=== PATIENT | female | born 1990 | race Caucasian/White ===

== ENCOUNTER → 2016-09-09 | Outpatient (CLI) | payer BC ==
[~2016-09-09] MED LIST: ALBUTEROL0.09 MG/A2 IH; ALBUTEROL0.09 MG/A2 INH; AMOXIL500 MG PO; ANAPROX DS550 MG PO; ATIVAN0.5 MG PO; CILOXAN 5 ML5 ML OT; CIPROFLOXACIN500 MG PO; CLARITIN10 MG PO; CORTISPORIN 1%-10 M1 OT; FE-TABS325 MG PO; FLONASE0.05 MG/AC; LEVOFLOXACIN500 MG PO; MEDROL DOSEPAK4 MG PO; NATURE'S BLE1000 MCG; NO DAILY MEDS; PERCOCET 325 MG1 TA7 PO; PERCOCET 325 MG1 TAB PO; PRE-NATAL1 TA1 PO; PRENATAL1 TA1 PO; TRIMOX500 MG PO; VENTOLIN 02.5 MG/3 M INH; VICO10300 PO; ZOFRAN ODT4 MG SL; ZOFRAN4 MG PO; ZYRTEC10 MG
== END | disposition home or self-care (01) ==
LOC: LAB 19:28
DX: Z31.41 Encounter for fertility testing (principal)

== ENCOUNTER → 2016-09-20 | Outpatient (CLI) | payer BC | END | disposition home or self-care (01) | LOC: LAB 08:26 | DX: Z01.83 Encounter for blood typing (principal); O09.01 Supervision of pregnancy with history of infertility, first trimester; Z3A.00 Weeks of gestation of pregnancy not specified ==

== ENCOUNTER → 2017-01-27 | Outpatient (CLI) | payer OTHER | END | disposition home or self-care (01) | LOC: RAD 14:46 | DX: M25.531 Pain in right wrist (principal) ==

== ENCOUNTER 2017-02-03 23:32 | Inpatient (IN) | payer OTHER ==
[~2017-02-03] VITALS: Ht 172.7 cm; Wt 83.7 kg
--- NOTE | ~2017-02-03 | CON ---
[place], [place] REPORT OF CONSULTATION NAME: SERA LOERA UNIT #: [id number] ROOM: 427 DOCTOR: CHRISTIAN MEZA MD BIRTHDATE: [birth year] DOS: 02/04/2017 REASON FOR CONSULTATION: Palpitations and frequent PVCs. 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 She was in her normal state of health until recently when she began to have problems with cough and dyspnea. She was felt to have bronchitis and was prescribed azithromycin Dose Pack along with a Medrol Dosepak. While she was taking the antibiotic and steroid therapy, she started feeling her pulse. ____ was becoming erratic and she became much more aware of her pulse and breathing. She was especially symptomatic when she laid down. This continued to worsen and therefore she came to the Emergency Room where she was found to have sinus tachycardia along with frequent isolated monomorphic PVCs. Her white count was elevated at 18,800. She was not anemic and had hemoglobin of 13.6. Troponin levels were normal and a TSH was normal. Nonetheless, she continued to have palpitations and therefore cardiac consultation was requested. She denies any chest pain, but she has had cough, wheezing and dyspnea. PAST MEDICAL HISTORY: Includes 1. Bronchitis and bronchospasm. 2. Long-term and ongoing cigarette abuse. 3. Asthma. 4. History of nasal septoplasty and tympanostomy tube placement. MEDICATIONS: Prior to admission: Albuterol by inhaler q. 6 hours p.r.n., DuoNeb by nebulizer q. 4 hours, Flonase nasal spray 2 sprays in each nostril b.i.d., cetirizine 10 mg daily and cholecalciferol 50,000 units weekly. ALLERGIES: The patient lists allergies to CORN, PEANUTS, SOYA and WHEAT. REVIEW OF SYSTEMS: The patient denies diplopia or loss of vision. She denies lightheadedness or syncope. She denies focal weakness. She denies orthopnea or PND. She has had cough and dyspnea. She denies fevers, chills, sweats or recent weight change. She denies any focal weakness. She denies nausea or vomiting. She denies hemoptysis or hematemesis. She denies change in bowel or bladder habits. Denies blood in her stool or urine. She denies any peripheral edema. She denies any skin rashes or hot, swollen joints. She denies any heat or cold intolerance. Denies polydipsia or polyuria. The remainder of the review of systems is negative except as noted above. FAMILY HISTORY: Negative for early coronary artery disease. 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 She smokes about 1/2-1 pack a day and does live with smokers in the home. She does not consume excessive amounts of alcohol. PHYSICAL EXAMINATION: [place], [place] REPORT OF CONSULTATION NAME: SERA LOERA UNIT #: [id number] ROOM: [facility] DOCTOR: CHRISTIAN MEZA MD BIRTHDATE: [birth year] GENERAL: The patient is a well-nourished white female who is awake, alert and oriented. She does appear to be anxious. VITAL SIGNS: Pulse is 140 and regular, blood pressure is 142/79. She is afebrile. She weighs 83.7 kg and has a body mass index of 28.1. HEENT: Normocephalic, atraumatic. Extraocular muscles are intact. Sclerae are clear. Pupils are equal, round and react to light. Oral mucosa is moist. Tongue is midline. NECK: Supple. She has no jugular distention. Carotids are full. I heard no bruits. She had no neck or supraclavicular masses and no thyromegaly. LUNGS: Respirations are slightly labored at rest and she does have frequent coughing during the interview. Breath sounds do show marked expiratory prolongation with expiratory wheezes and rhonchi bilaterally. Abnormal lung sounds are heard over all lung morin. She has no presacral edema or chest wall tenderness. CARDIOVASCULAR: Her heart has a regular rhythm without murmurs, rubs or gallops. Heart tones are somewhat obscured by the lung sounds. The PMI is not displaced. There is no precordial heave, lift or thrill. ABDOMEN: Soft, nontender, normoactive without masses, organomegaly or bruits. EXTREMITIES: Showed no clubbing, cyanosis, edema, cords or Homans sign. Peripheral pulses are easily palpated bilaterally. LABORATORY DATA: I reviewed her electrocardiogram, which showed sinus tachycardia with a single premature ventricular contraction and nonspecific T-wave abnormalities. IMPRESSION: 1. Acute exacerbation of chronic lung disease. 2. Long-term and ongoing cigarette abuse. 3. Increased cardiac awareness most likely due to her work of breathing, bronchodilator therapy, steroid therapy, catecholamine excess, etc. Thus far, she has no evidence for structural or ischemic heart disease. PLAN: I strongly encouraged the patient to stop smoking completely as of now. She will be treated for her lung disease. I think as her lungs improve her cardiac symptoms will decrease as well. In the meantime, I did start her on low dose of diltiazem, which I expect we will be able to stop within a few days. We will observe her with her other physicians. We will review the results of her echocardiogram when they are available. We thank the hospitalist physicians for asking our advice regarding her care. [place], [place] REPORT OF CONSULTATION NAME: SERA LOERA UNIT #: [id number] ROOM: 427 DOCTOR: CHRISTIAN MEZA MD BIRTHDATE: [birth year] CHRISTIAN MEZA MD CM:CONSTR:REPORT OF CONSULTATION [id number] 02/05/17 0019 interface
[2017-02-03 23:46] VITALS: BP 130/70
[2017-02-03 23:53] LABS: BASO # 0.1 10*3/uL (0.0-0.1); BASO % 0.5 % (0.0-1.0); EOS % 0.2 % (1.0-4.0); HEMOGLOBIN 14.9 g/dl (12.0-16.0); LYMPH # 3.2 10*3/uL (1.3-4.4); LYMPH % 17.6 % (27.0-41.0); MEAN CELL VOLUME 90.1 fl (81.0-99.0); MEAN CORPUSCULAR HGB 31.2 pg (27.0-31.0); MEAN CORPUSCULAR HGB CONC 34.7 g/dl (33.0-37.0); MEAN PLATELET VOLUME 8.8 fl (9.6-12.3); MONO # 0.9 10*3/uL (0.1-1.0); MONO % 5.1 % (3.0-9.0); NEUT # 13.9 10*3/uL (2.3-7.9); NEUT % 76.2 % (47.0-73.0); PLATELET COUNT AUTOMATED 500 10*3/uL (130-400); RED BLOOD COUNT 4.77 10*6/uL (4.10-5.10); RED CELL DISTRI WIDTH 12.6 % (0-14.5); WHITE BLOOD COUNT 18.3 10*3/uL (4.8-10.8)
[2017-02-04] VITALS (8 sets, daily range): BP systolic 101–144; BP diastolic 44–80
[2017-02-04 00:06] LABS: ACT PARTIAL THROMBO TIME 23.2 SECONDS (20.8-31.5)
[2017-02-04 00:12] LABS: ALBUMIN 4.3 gm/dl (3.1-4.5); ALKALINE PHOSPHATASE 68 U/L (45-117); BUN 8 mg/dl (7-24); CHLORIDE 104 mmol/L (98-107); CREATININE 0.88 mg/dL (0.55-1.02); MAGNESIUM 1.9 mg/dL (1.5-2.1); POTASSIUM 3.7 mmol/L (3.5-5.1); SGOT/AST 22 IU/L (3-35); SGPT/ALT 36 U/L (12-78); SODIUM 136 mmol/L (136-145); TOTAL PROTEIN 9.2 gm/dL (6.4-8.2)
[2017-02-04 00:14] LABS: B-hCG (QUALITATIVE) NEGATIVE (NEGATIVE)
[2017-02-04 00:18] LABS: TROPONIN I < 0.015 ng/ml (<0.045)
[2017-02-04 00:23] LABS: BILIRUBIN NEGATIVE (NEGATIVE); BLOOD TRACE-INTACT (NEGATIVE); CLARITY CLEAR (CLEAR); COLOR YELLOW (YELLOW); GLUCOSE TRACE (NEGATIVE); KETONE NEGATIVE (NEGATIVE); LEUKO ESTERASE TRACE (NEGATIVE); NITRITE NEGATIVE (NEGATIVE); PH 5.5 (5.0-9.0); SPECIFIC GRAVITY <= 1.005 (1.005-1.030); UROBILINOGEN 0.2 E.U./dl (0.2-1.0)
[2017-02-04 00:34] LABS: URINE AMPHETAMINES < 1000 (1000ng/ml); URINE BARBITURATES < 200 (200ng/ml); URINE BENZODIAZEPINES < 200 (200ng/ml); URINE CANNABINOIDS (THC) < 50 (50ng/ml); URINE COCAINE < 300 (300ng/ml); URINE METHADONE < 300 (300ng/ml); URINE OPIATES < 300 (300ng/ml)
[2017-02-04 00:35] LABS: URINE PHENCYCLIDINE < 25 (25ng/ml)
[2017-02-04 00:37] LABS: BACTERIA TRACE; RBC 0-2 rbc/hpf (0-2); WBC 0-2 wbc/hpf (0-5)
[2017-02-04] MEDS ORDERED: VITAMIN D50000 UNIT PO (03:47)
[2017-02-04] MEDS ORDERED: FLONASE ALLERG9.9 ML NAS (03:48)
[2017-02-04] MEDS ORDERED: ZYRTEC10 MG PO (03:48)
[2017-02-04] MEDS ORDERED: ZITHROMAX TRI-500 M1 PO (03:49)
[2017-02-04] MEDS ORDERED: DUONEB 3 MG/3 ML3 M1 INH (03:50)
[2017-02-04] MEDS ORDERED: MEDROL DOSEPAK4 MG PO (03:50)
[2017-02-04 05:39] LABS: BASO # 0.1 10*3/uL (0.0-0.1); BASO % 0.3 % (0.0-1.0); HEMOGLOBIN 13.6 g/dl (12.0-16.0); LYMPH # 2.7 10*3/uL (1.3-4.4); LYMPH % 14.2 % (27.0-41.0); MEAN CELL VOLUME 91.7 fl (81.0-99.0); MEAN CORPUSCULAR HGB 31.2 pg (27.0-31.0); MEAN PLATELET VOLUME 8.8 fl (9.6-12.3); MONO # 0.9 10*3/uL (0.1-1.0); MONO % 4.9 % (3.0-9.0); NEUT # 15.1 10*3/uL (2.3-7.9); NEUT % 80.1 % (47.0-73.0); PLATELET COUNT AUTOMATED 439 10*3/uL (130-400); RED BLOOD COUNT 4.36 10*6/uL (4.10-5.10); RED CELL DISTRI WIDTH 12.9 % (0-14.5); WHITE BLOOD COUNT 18.8 10*3/uL (4.8-10.8)
[2017-02-04 05:49] LABS: ALBUMIN 3.7 gm/dl (3.1-4.5); ALKALINE PHOSPHATASE 55 U/L (45-117); BUN 5 mg/dl (7-24); CHLORIDE 110 mmol/L (98-107); CHOLESTEROL 193 mg/dL (<200); CREATININE 0.71 mg/dL (0.55-1.02); HDL CHOLESTEROL 43 mg/dl (40-60); LDL CHOLESTEROL 136 mg/dL (9-159); MAGNESIUM 1.8 mg/dL (1.5-2.1); PHOSPHOROUS 2.8 mg/dL (2.5-4.9); POTASSIUM 3.7 mmol/L (3.5-5.1); SGOT/AST 11 IU/L (3-35); SGPT/ALT 29 U/L (12-78); SODIUM 141 mmol/L (136-145); TOTAL PROTEIN 7.8 gm/dL (6.4-8.2); TRIGLYCERIDES 71 mg/dl (<150); VLDL CHOLESTEROL 14 mg/dL (6-40)
[2017-02-04 05:50] LABS: FREE T4 1.02 ng/dl (0.76-1.46)
[2017-02-04 05:53] LABS: TROPONIN I < 0.015 ng/ml (<0.045)
[2017-02-04 05:55] LABS: THYROID STIM HORMONE (HS) 0.843 uIU/ml (0.358-4.75)
[2017-02-04 07:56] LABS: VITAMIN D, 25-HYDROXY 31.7 ng/mL (30-100)
[2017-02-05] VITALS: BP 106/48
[2017-02-05 07:12] LABS: BASO % 0.2 % (0.0-1.0); HEMATOCRIT 39.3 % (37.0-47.0); HEMOGLOBIN 13.4 g/dl (12.0-16.0); LYMPH # 2.8 10*3/uL (1.3-4.4); LYMPH % 15.8 % (27.0-41.0); MEAN CELL VOLUME 91.4 fl (81.0-99.0); MEAN CORPUSCULAR HGB 31.2 pg (27.0-31.0); MEAN CORPUSCULAR HGB CONC 34.1 g/dl (33.0-37.0); MONO # 0.4 10*3/uL (0.1-1.0); MONO % 2.5 % (3.0-9.0); NEUT # 14.2 10*3/uL (2.3-7.9); NEUT % 80.8 % (47.0-73.0); PLATELET COUNT AUTOMATED 452 10*3/uL (130-400); RED CELL DISTRI WIDTH 13.2 % (0-14.5); WHITE BLOOD COUNT 17.6 10*3/uL (4.8-10.8)
[2017-02-05 07:46] LABS: BUN 6 mg/dl (7-24); CHLORIDE 105 mmol/L (98-107); CREATININE 0.67 mg/dL (0.55-1.02); MAGNESIUM 1.8 mg/dL (1.5-2.1); PHOSPHOROUS 3.9 mg/dL (2.5-4.9); POTASSIUM 3.7 mmol/L (3.5-5.1); SODIUM 139 mmol/L (136-145)
[2017-02-05 08:00] VITALS: BP 121/65
[2017-02-05 12:00] VITALS: BP 135/70
[2017-02-05 16:00] VITALS: BP 138/70
[2017-02-05 18:01] LABS: ABG BASE EXCESS -3.6 mmol/L (-2.0-2.0); ABG HCO3 19.9 mmol/l (22-26); ABG O2 SATURATION 82.5 % (95-97); ARTERIAL BLOOD GAS PCO2 32.3 mmHg (35-45); ARTERIAL BLOOD GAS PH 7.404 (7.35-7.45); ARTERIAL BLOOD GAS PO2 46.7 mmHg (80-90)
[2017-02-05 20:00] VITALS: BP 106/50
[2017-02-06] VITALS: BP 106/52
[2017-02-06 06:42] LABS: BASO % 0.2 % (0.0-1.0); HEMATOCRIT 38.9 % (37.0-47.0); HEMOGLOBIN 13.2 g/dl (12.0-16.0); LYMPH # 2.9 10*3/uL (1.3-4.4); LYMPH % 14.7 % (27.0-41.0); MEAN CELL VOLUME 91.3 fl (81.0-99.0); MEAN CORPUSCULAR HGB CONC 33.9 g/dl (33.0-37.0); MONO # 0.7 10*3/uL (0.1-1.0); MONO % 3.6 % (3.0-9.0); NEUT # 15.8 10*3/uL (2.3-7.9); PLATELET COUNT AUTOMATED 449 10*3/uL (130-400); RED BLOOD COUNT 4.26 10*6/uL (4.10-5.10); RED CELL DISTRI WIDTH 13.3 % (0-14.5); WHITE BLOOD COUNT 19.8 10*3/uL (4.8-10.8)
[2017-02-06 08:00] VITALS: BP 112/50
[2017-02-06] MEDS ORDERED: NICOTROL10 MG INH (11:58)
[2017-02-06] MEDS ORDERED: DILTIAZEM HCL30 MG PO (11:58)
[2017-02-06] MEDS ORDERED: PREDNISONE10 MG PO (11:58)
[2017-02-06] MEDS ORDERED: DOXYCYCLINE100 M3 PO (11:58)
[2017-02-06 12:00] VITALS: BP 118/69
[2017-02-06] MEDS ORDERED: HYCODAN/HYDROMET5 ML PO (12:02)
[2017-02-06 12:12] VITALS: BP 112/50
[2017-02-06] MEDS ORDERED: CARDIZEM CD120 M2 PO ×2 (12:35→12:42)
== END 2017-02-06 12:50 | disposition home or self-care (01) | DRG 871 ==
LOC: ED 23:32 → EDHOLD 02-04 02:58 → 4E 02-04 02:58
PROVIDERS: Emergency Medicine Emergency Medical Services; Hospitalist; Internal Medicine; ADMIT Emergency Medicine
DX: A41.9 Sepsis, unspecified organism (principal); J18.9 Pneumonia, unspecified organism; J45.21 Mild intermittent asthma with (acute) exacerbation; F17.210 Nicotine dependence, cigarettes, uncomplicated; E55.9 Vitamin D deficiency, unspecified; D47.3 Essential (hemorrhagic) thrombocythemia; J20.9 Acute bronchitis, unspecified; I49.3 Ventricular premature depolarization; J30.2 Other seasonal allergic rhinitis; R73.9 Hyperglycemia, unspecified; Z91.010 Allergy to peanuts; Z82.5 Family history of asthma and other chronic lower respiratory diseases; Z91.018 Allergy to other foods; Z71.6 Tobacco abuse counseling; Z91.09 Other allergy status, other than to drugs and biological substances

== ENCOUNTER → 2017-05-11 | Outpatient (CLI) | payer OTHER ==
[~2017-05-11] MED LIST changes: +CARDIZEM CD120 M2 PO; +DILTIAZEM HCL30 MG PO; +DOXYCYCLINE100 M3 PO; +DUONEB 3 MG/3 ML3 M1 INH; +FLONASE ALLERG9.9 ML NAS; +HYCODAN/HYDROMET5 ML PO; +NICOTROL10 MG INH; +PREDNISONE10 MG PO; +VITAMIN D50000 UNIT PO; +ZITHROMAX TRI-500 M1 PO; +ZYRTEC10 MG PO
== END | disposition home or self-care (01) ==
LOC: LAB 16:37
DX: N91.2 Amenorrhea, unspecified (principal)

== ENCOUNTER → 2017-05-14 | Outpatient (CLI) | payer OTHER | END | disposition home or self-care (01) | LOC: LAB 14:21 | DX: O20.0 Threatened abortion (principal) ==

== ENCOUNTER 2017-07-10 23:12 | Emergency (ER) | payer OTHER ==
[~2017-07-10] VITALS: Ht 165.1 cm; Wt 84.4 kg
[2017-07-11 00:11] LABS: HEMATOCRIT 40.9 % (37.0-47.0); HEMOGLOBIN 13.8 g/dl (12.0-16.0); MEAN CELL VOLUME 89.7 fl (81.0-99.0); MEAN CORPUSCULAR HGB 30.3 pg (27.0-31.0); MEAN CORPUSCULAR HGB CONC 33.7 g/dl (33.0-37.0); MEAN PLATELET VOLUME 8.6 fl (9.6-12.3); PLATELET COUNT AUTOMATED 497 10*3/uL (130-400); RED BLOOD COUNT 4.56 10*6/uL (4.10-5.10); RED CELL DISTRI WIDTH 11.9 % (0-14.5); WHITE BLOOD COUNT 13.7 10*3/uL (4.8-10.8)
[2017-07-11 00:16] LABS: URINE AMPHETAMINES < 1000 (1000ng/ml); URINE BARBITURATES < 200 (200ng/ml); URINE BENZODIAZEPINES < 200 (200ng/ml); URINE CANNABINOIDS (THC) < 50 (50ng/ml); URINE COCAINE < 300 (300ng/ml); URINE METHADONE < 300 (300ng/ml); URINE OPIATES < 300 (300ng/ml)
[2017-07-11 00:18] LABS: URINE PHENCYCLIDINE < 25 (25ng/ml)
[2017-07-11 00:27] LABS: ALBUMIN 4.1 gm/dl (3.1-4.5); ALKALINE PHOSPHATASE 62 U/L (45-117); BUN 8 mg/dl (7-24); CHLORIDE 101 mmol/L (98-107); CREATININE 0.86 mg/dL (0.55-1.02); POTASSIUM 3.5 mmol/L (3.5-5.1); SGOT/AST 15 IU/L (3-35); SGPT/ALT 30 U/L (12-78); SODIUM 136 mmol/L (136-145); TOTAL PROTEIN 8.5 gm/dL (6.4-8.2)
[2017-07-11 00:30] LABS: PLATELET SUFFICIENCY HIGH (NORMAL); TOTAL CELLS COUNTED 100 #CELLS
[2017-07-11 00:31] LABS: TROPONIN I < 0.015 ng/ml (<0.045)
[2017-07-11 00:33] LABS: B-hCG (QUALITATIVE) NEGATIVE (NEGATIVE)
== END 2017-07-11 01:50 | disposition home or self-care (01) ==
LOC: ED 23:12
PROVIDERS: Emergency Medicine Emergency Medical Services
DX: R00.2 Palpitations (principal); F17.210 Nicotine dependence, cigarettes, uncomplicated; Z98.890 Other specified postprocedural states; Z87.01 Personal history of pneumonia (recurrent); Z79.899 Other long term (current) drug therapy; Z91.010 Allergy to peanuts; Z91.018 Allergy to other foods

== ENCOUNTER → 2017-09-16 | Outpatient (CLI) | payer OTHER ==
--- NOTE | ~2017-09-16 | HM ---
[place], [place] HOLTER MONITOR REPORT NAME: SERA LOERA UNIT #: [id number] ROOM: DOCTOR: TIP MAGANA MD BIRTHDATE: [birth year] DOS: DATE OF RECORDIN09/16/2017 DATE OF ANALYSIS AND REPORTIN09/18/2017. It is a 48-hour monitor. ASSESSMENT: Baseline normal sinus rhythm. Maximum heart rate 148, minimum heart rate 51, and average heart rate 85. No atrial fibrillation, ventricular fibrillation or ventricular tachycardia noted. No premature ventricular complexes noted. Occasional premature atrial complexes and a total number of atrial premature complexes were 23, which were less than 1%. No other arrhythmias or pauses were noted. Tip Magana MD CM:HOLTER:HOLTER MONITOR REPORT [id number] TIP MAGANA MD
== END | disposition home or self-care (01) ==
LOC: CARD 08:30
DX: R00.2 Palpitations (principal)

== ENCOUNTER → 2017-12-23 | Outpatient (CLI) | payer OTHER | END | disposition home or self-care (01) | LOC: MAMMO 11:00 | DX: N63.23 Unspecified lump in the left breast, lower outer quadrant (principal) ==

== ENCOUNTER → 2018-06-08 | Outpatient (CLI) | payer OTHER ==
[2018-06-11 08:12] LABS: ALTERNARIA ALTERNATA, IGE 0.33 kU/L (Class I); CLADOSPORIUM HERBARU, IGE 0.24 kU/L (Class 0/I); CORN, IGE 9.07 kU/L (Class IV); D FARINAE MITE 2.26 kU/L (Class III); D PTERONYSSINUS 0.82 kU/L (Class II); DOG DANDER, IGE 1.15 kU/L (Class II); IMMUNOGLOBULIN IgE 002170 76 IU/mL (0-100); MILK (COW), IGE 0.23 kU/L (Class 0/I); MOUSE URINE IGE 0.35 kU/L (Class I); PENICILLIUM CHRYSOGENUM, IGE 0.34 kU/L (Class I); SOYBEAN, IGE 9.18 kU/L (Class IV); WHEAT, IGE 9.95 kU/L (Class IV); WHITE MULBERRY, IGE 8.83 kU/L (Class IV)
== END | disposition home or self-care (01) ==
LOC: LAB 11:06
PROVIDERS: Specialist
DX: J30.9 Allergic rhinitis, unspecified (principal)

== ENCOUNTER → 2018-09-06 | Outpatient (CLI) | payer OTHER | END | disposition home or self-care (01) | LOC: MRI 11:29 | DX: H93.A1 Pulsatile tinnitus, right ear (principal); E11.9 Type 2 diabetes mellitus without complications ==

== ENCOUNTER 2018-10-23 12:50 | Emergency (ER) | payer OTHER ==
[~2018-10-23] VITALS: Ht 162.5 cm; Wt 72.6 kg
[2018-10-23] MEDS ORDERED: DOXYCYCLINE100 M3 PO ×2 (13:01→13:02)
== END 2018-10-23 13:17 | disposition home or self-care (01) ==
LOC: ED 12:50
DX: S60.561A Insect bite (nonvenomous) of right hand, initial encounter (principal); F17.210 Nicotine dependence, cigarettes, uncomplicated; Z88.1 Allergy status to other antibiotic agents; Z91.010 Allergy to peanuts; Z91.018 Allergy to other foods; Z79.899 Other long term (current) drug therapy; W57.XXXA Bitten or stung by nonvenomous insect and other nonvenomous arthropods, initial encounter; Y93.89 Activity, other specified; Y92.89 Other specified places as the place of occurrence of the external cause; Y99.8 Other external cause status

== ENCOUNTER → 2019-11-03 | Outpatient (CLI) | payer OTHER | LOC: LAB 10:31 | DX: O20.0 Threatened abortion (principal); Z87.59 Personal history of other complications of pregnancy, childbirth and the puerperium ==

== ENCOUNTER → 2020-03-08 | Outpatient (CLI) | payer OTHER | END | disposition home or self-care (01) | LOC: COVID19 09:08 | PROVIDERS: ATTEND Family Medicine | DX: Z20.828 Contact with and (suspected) exposure to other viral communicable diseases (principal) ==